=== PATIENT | male | born 1975 | race Two or more races ===

== ENCOUNTER 2017-01-29 20:11 | Emergency (ER) | payer SELFPAY ==
[~2017-01-29 20:11] MED LIST: ACET500CAP PO; AMOXIL875 MG PO; BEN25 PO; CIP2 PO; FL250 PO; NORCO1 TA2 PO; VICODINTAB PO; ZOFRANODT8 PO; ZOL50 PO
== END 2017-01-29 22:07 | disposition home or self-care (01) ==
LOC: ER 20:11
DX: R10.31 Right lower quadrant pain (principal); F32.9 Major depressive disorder, single episode, unspecified; F41.9 Anxiety disorder, unspecified; Z88.5 Allergy status to narcotic agent; Z79.899 Other long term (current) drug therapy
CPT/HCPCS: 93926; 96372; 99284

== ENCOUNTER 2017-04-20 17:00 | Emergency (ER) | payer OTHER | END 2017-04-20 18:06 | disposition home or self-care (01) | LOC: ER 17:00 | DX: M54.5 Low back pain (principal); Z88.5 Allergy status to narcotic agent; Z79.899 Other long term (current) drug therapy | CPT/HCPCS: 72100; 96372; 99283; J1170 ==

== ENCOUNTER 2017-05-13 18:51 | Emergency (ER) | payer OTHER | END 2017-05-13 19:33 | disposition home or self-care (01) | LOC: ER 18:51 | DX: M54.5 Low back pain (principal); Z88.5 Allergy status to narcotic agent; Z79.899 Other long term (current) drug therapy | CPT/HCPCS: 99283 ==